=== PATIENT | male | born 1970 | race African-American/Black ===

== ENCOUNTER 2025-02-14 18:23 | Emergency (ER) | payer OTHER ==
[~2025-02-14] VITALS: Ht 182.9 cm; Wt 91.0 kg
[2025-02-14 18:27] VITALS: O2SAT 100
[2025-02-14 19:59] VITALS: RESP 16; TEMP 36.4
[2025-02-14 20:04] VITALS: BP 114/69; PULSE 68
== END 2025-02-15 01:00 | disposition home or self-care (01) ==
LOC: ER 18:23 → EDBD 18:23 → ER 02-15 01:00
DX: F10.129 Alcohol abuse with intoxication, unspecified (principal); Y90.9 Presence of alcohol in blood, level not specified
CPT/HCPCS: 99283